=== PATIENT | male | born 1960 | race Caucasian/White ===

== ENCOUNTER → 2017-11-10 | Outpatient (CLI) | payer MEDICARE ==
--- NOTE | 2017-11-11 08:49 | MR ---
EXAMINATION TYPE: MR lumbar spine wo/w con DATE OF EXAM: 11/10/2017 COMPARISON: NONE HISTORY: Low back pain Contrast: 9.5 abnormal Gadavist TECHNIQUE: T1 and T2 axial and sagittal images of the lumbar spine are submitted. FINDINGS: There is no abnormal signal seen within the visualized spinal cord or paraspinal soft tissu es. There is loss of the normal lumbar lordosis which is stable from prior exam. At T12-L1 degenerative signal within the disc space compatible with degenerative disc disease is stab le. Findings suggest previous laminectomy. No canal stenosis or disc herniation. Neural foramina are patent. At L1-2 there is no disc herniation or canal stenosis. Correlate for previous laminectomy. Neural for ken patent. At L2-3 there is there is progression of degenerative disc disease with severe changes seen near comp lete loss of disc space. Discogenic marrow changes are seen and there is diffuse central broad-based disc protrusion with moderate effacement of thecal sac. There is moderate left foraminal encroachment and mild right foraminal encroachment. Moderate central stenosis. At L3-4 there is disc desiccation with broad-based central disc bulging greater centrally slightly pa racentrally to left with mild effacement of thecal sac. Neural foramina remain patent. At L4-5 there is severe degenerative disc disease. There is broad-based central disc bulging greater paracentrally to left with hypertrophy ligamentum flavum and facet joints contribute to mild to moder ate central stenosis and bilateral foraminal suspect impingement left nerve root. Encroachment. At L5-S1 there is severe degenerative disc disease. Broad-based central disc bulging results in mild effacement of thecal sac. Findings suggest previous left hemilaminectomy. Mild bilateral foraminal en croachment. IMPRESSION: 1. Multilevel degenerative disc disease with progression L2-L3. Diffuse disc protrusion results in mo derate central stenosis and bilateral foraminal encroachment. 2. Multilevel postsurgical changes. 3. Broad-based central disc bulging with hypertrophic changes L4-L5 results in mild to moderate centr al stenosis and bilateral foraminal encroachment. More focal left paracentral disc protrusion or smal l herniation is stable. Nerve root impingement this level suspected. Also reported on previous exam.
== END | disposition home or self-care (01) ==
LOC: RADMRIMAIN 13:34
PROVIDERS: ATTEND Psychiatry & Neurology Pain Medicine
DX: M48.061 Spinal stenosis, lumbar region without neurogenic claudication (principal); M51.26 Other intervertebral disc displacement, lumbar region; M51.36 Other intervertebral disc degeneration, lumbar region; Z98.890 Other specified postprocedural states
CPT/HCPCS: 82565; 84520; 72158; 36415; A9581

== ENCOUNTER → 2018-03-05 | Outpatient (CLI) | payer MEDICARE ==
--- NOTE | 2018-03-05 14:26 | CT ---
EXAMINATION TYPE: CT angio chest DATE OF EXAM: 03/05/2018 2:13 PM COMPARISON: None HISTORY: R/O PE, recent back sx x1 month ago CT DLP: 345 mGycm Automated exposure control for dose reduction was used. CONTRAST: CTA scan of the thorax is performed with IV Contrast, patient injected with 80 mL of Isovue 370, pulm onary embolism protocol. . FINDINGS: LUNGS: The lungs are grossly clear, there is no concerning parenchymal mass or nodule identified. T here is no pleural effusion or pneumothorax seen. The tracheobronchial tree is patent. Pleural-based thickening noted on the left. Mild hyperinflation correlate for asthma or COPD. There is a periphera l 2 mm nodule right upper lobe laterally and left lung apex laterally which are too small to characte rize. MEDIASTINUM: There is satisfactory enhancement of the pulmonary artery and its branches, there is no CT evidence for pulmonary embolism. There are no greater than 1 cm hilar or mediastinal lymph nodes. No pericardial effusion is seen. OTHER: Severe degenerative disc disease seen involving the lower lumbar spine with posterior spondyl osis and findings suggestive of previous laminectomy. There is concern for postoperative infection or discitis correlate with MRI with contrast IMPRESSION: 1. No diagnostic evidence of pulmonary embolism 2. Postsurgical change lower thoracic spine. If there is concern for infection or discitis correlate with MRI with contrast. 3. There are a couple 2 mm pulmonary nodules which are too small to characterize. Six-month follow-up CT scan of the chest could be obtained to confirm stability.
== END | disposition home or self-care (01) ==
LOC: RADCTMAIN 13:42
PROVIDERS: ATTEND Family Medicine
DX: R91.8 Other nonspecific abnormal finding of lung field (principal); Z98.890 Other specified postprocedural states
CPT/HCPCS: 71275; Q9967

== ENCOUNTER → 2019-09-22 | Outpatient (CLI) | payer MEDICARE ==
--- NOTE | 2019-09-23 08:35 | CT ---
EXAMINATION TYPE: CT foot RT wo con DATE OF EXAM: 09/22/2019 COMPARISON: None HISTORY: 59-year-old male right foot pain following fall TECHNIQUE: Contiguous axial scanning of the right foot without IV contrast. Coronal and sagittal luz nstructions performed. 3-D reconstructions generated on a dedicated independent workstation. CT DLP: 222.9 mGycm Automated exposure control for dose reduction was used. FINDINGS: There is a mildly comminuted fracture involving the first metatarsal base with intra-articular extens ion into the dorsal aspect of the first TMT joint. There is no displacement. No additional midfoot fr actures seen. No malalignment is identified. Mcfadden's toe. Subtalar joint is aligned. No delineation to the Achilles tendon. IMPRESSION: MILDLY COMMINUTED, NONDISPLACED FRACTURE INVOLVING THE FIRST METATARSAL BASE. INTRA-ARTICULAR EXTENSI ON INTO THE DORSAL ASPECT OF THE FIRST TMT JOINT. NO ADDITIONAL MIDFOOT FRACTURE OR MALALIGNMENT SEEN .
== END | disposition home or self-care (01) ==
LOC: RADCTMAIN 13:26
PROVIDERS: ATTEND Orthopaedic Surgery
DX: S92.314A Nondisplaced fracture of first metatarsal bone, right foot, initial encounter for closed fracture (principal); S93.324A Dislocation of tarsometatarsal joint of right foot, initial encounter

== ENCOUNTER → 2020-11-11 | Outpatient (CLI) | payer BC, MEDICARE ==
--- NOTE | 2020-11-12 12:39 | CT ---
EXAMINATION TYPE: CT thoracic spine wo con, CT lumbar spine wo con DATE OF EXAM: 11/11/2020 COMPARISON: HISTORY: back pain, new recent injury (accession [id number]), back pain, no recent injury (accession [id number]) CT DLP: 989.4 (accession [id number]), 933.8 (accession [id number]) mGycm Automated exposure control for dose reduction was used. Helical imaging obtained through the thoracic and lumbar spine. Correlation to lumbar MRI 11/10/2017, MRI 02/09/2011 FINDINGS: There is a thoracic spinal curvature. Multilevel spondylosis is present. Thoracic vertebral bodies sh ow preserved height and bone mineralization. Loss of disc height at intervertebral levels of the uppe r thoracic spine noted. No significant foraminal encroachment. L1-L2 shows laminectomy change. Lead Portfolio Manager ior bony fusion change at the posterior elements, bridging bone is present from T12 to L1. Posterior fusion changes present L4-5 with intervertebral spacing block. Loss of disc height signal present L5- S1, L2-3 with associated vacuum phenomenon, minimal retrolisthesis grade 1 L2 on L3. Relative kyphosi s is noted at T12-L1 noted on prior MRI. No evident spinal stenosis or significant disc herniation. L5-S1 shows circumferential extension endplate disc complex extending towards the foramina as does L4 -5. Left-sided laminectomy change present at L4-5. Posterior disc bulge L5-S1 causes mild anterior ma ss effect on the thecal sac, possibly contact with the proximal S1 nerve roots. L4-5 show some soft t issue posterior lateral to the thecal sac and likely related to patient's surgery, there may be some underlying granulation tissue. L3-4 shows circumferential posterior disc bulge causing mild anterior mass effect on the thecal sac. No significant foraminal encroachment. Retrolisthesis grade 1 L2-3, posterior extension endplate disc complex causes anterior mass effect on the thecal sac. No significant spinal stenosis evident. T12-L1 and L1-2 are widely patent, no significant stenosis. There is a mild spinal curvature. IMPRESSION: POSTOP CHANGES ARE AGAIN NOTED. THERE IS DEGENERATIVE DISC DISEASE, FORAMINAL ENCROACHMENT DESCRIB ED.
== END | disposition home or self-care (01) ==
LOC: RADCTMAIN 14:42
PROVIDERS: ATTEND Psychiatry & Neurology Neurology
DX: M51.27 Other intervertebral disc displacement, lumbosacral region (principal); M43.16 Spondylolisthesis, lumbar region; M99.73 Connective tissue and disc stenosis of intervertebral foramina of lumbar region
CPT/HCPCS: 72128; 72131

== ENCOUNTER → 2021-07-14 | Outpatient (CLI) | payer MEDICARE ==
--- NOTE | 2021-07-14 08:05 | US ---
EXAMINATION TYPE: US kidneys/renal and bladder DATE OF EXAM: 07/14/2021 COMPARISON: NONE CLINICAL HISTORY: 61-year-old male N17.9. ACUTE KIDNEY FAILURE. Abnormal labs TECHNIQUE: Multiple sonographic images of the kidneys and bladder are obtained. FINDINGS: EXAM MEASUREMENTS: Right Kidney: 9.2 x 5.2 x 5.1 cm Left Kidney: 11.0 x 5.6 x 5.9 cm Right Kidney: No hydronephrosis or masses seen, slightly smaller in size compared to contralateral ki dney Left Kidney: No hydronephrosis or masses seen Bladder: distended, anechoic Bilateral Jets not seen IMPRESSION: No hydronephrosis. Ureteral jets not seen during the course of the exam. This could reflect decreased kidney function.
== END | disposition home or self-care (01) ==
LOC: RADUSWWP 06:59
PROVIDERS: ATTEND Family Medicine
DX: N17.9 Acute kidney failure, unspecified (principal)
CPT/HCPCS: 76770

== ENCOUNTER 2021-08-21 13:04 | Emergency (ER) | payer MEDICARE ==
[2021-08-21] MEDS ORDERED: ONDANSETRON 4 MG/2 ML VIAL IVP STA (13:48)
[2021-08-21] MEDS ORDERED: SODIUM CHLORIDE 0.9% 1,000 ML IV STA (13:48)
[2021-08-21 14:05] LABS: Basophils % (A) 1 %; Eosinophils # (A) 0.3 k/uL (0-0.7); Eosinophils % (A) 3 %; HGB 16.1 gm/dL (13.0-17.5); Lymphocytes # (A) 0.8 k/uL (1.0-4.8); Lymphocytes % (A) 10 %; MCH 31.5 pg (25.0-35.0); MCHC 33.5 g/dL (31.0-37.0); MCV 94.2 fL (80.0-100.0); Monocytes # (A) 0.4 k/uL (0-1.0); Monocytes % (A) 5 %; Neutrophils # (A) 6.1 k/uL (1.3-7.7); Neutrophils % (A) 78 %; Platelet Count 316 k/uL (150-450); RDW 13.2 % (11.5-15.5); WBC 7.9 k/uL (3.8-10.6)
[2021-08-21 14:14] LABS: Albumin 4.6 g/dL (3.5-5.0); Calcium 9.5 mg/dL (8.4-10.2); Potassium 4.6 mmol/L (3.5-5.1); Total Bilirubin 0.8 mg/dL (0.2-1.3); Total Protein 7.5 g/dL (6.3-8.2)
--- NOTE | 2021-08-21 14:42 | ED ---
Abdominal Pain HPI - General Chief Complaint: Abdominal Pain Stated Complaint: Vomiting Time Seen by Provider: 08/21/21 13:15 Source: patient Mode of arrival: ambulatory Limitations: no limitations - History of Present Illness Initial Comments: 61-year-old male presents emergency Department with nausea, vomiting and right sided abdominal pain. He reports that his symptoms started 7 days ago after he had ALLERGY testing. He has had difficulty keeping down any food or water. He had pain on his right side was radiated around to his flank. States that his symptoms of pain were worse a few days ago and have gotten better. He denies hematemesis. No associated diarrhea, constipation, melenic stools or hematochezia. He has had some dark stools however is taking Pepto at home. No history of GI bleeding or peptic ulcer disease. Patient admits to chronic back pain as he has 9 surgeries. He has chronic kidney disease and therefore denies NSAID use. No sick contacts with similar symptoms. No fevers. No other alleviating, precipitating or modifying factor - Related Data Home Medications Medication Instructions Recorded Confirmed Calcium Carbonate [Calcium] 600 mg PO DAILY 08/21/21 08/21/21 Cholecalciferol [Vitamin D3 (25 25 mcg PO DAILY 08/21/21 08/21/21 Mcg = 1000 Iu)] Fenofibrate 160 mg PO DAILY 08/21/21 08/21/21 Fish Oil/Dha/Epa [Fish Oil 1,200 1 cap PO DAILY 08/21/21 08/21/21 mg Fish Oil] Gabapentin 300 mg PO QID 08/21/21 08/21/21 HYDROcodone/APAP 10-325MG [Energy 1 tab PO QID 08/21/21 08/21/21 10-325] Irbesartan 300 mg PO DAILY 08/21/21 08/21/21 Labetalol HCl 200 mg PO BID 08/21/21 08/21/21 Magnesium 500 mg PO DAILY 08/21/21 08/21/21 Rosuvastatin Calcium [Crestor] 20 mg PO DAILY 08/21/21 08/21/21 Sildenafil Citrate 50 mg PO DAILY PRN 08/21/21 08/21/21 Testosterone Cypionate 300 mg IM Q14D 08/21/21 08/21/21 [Depo-Testosterone] Vitamin B Complex 1 cap PO DAILY 08/21/21 08/21/21 hydrALAZINE HCL 50 mg PO TID 08/21/21 08/21/21 tiZANidine HCL 4 mg PO QID 08/21/21 08/21/21 Previous Rx's Medication Instructions Recorded Amoxicillin/Potassium Clav 1 tab PO Q12HR #20 tab 08/21/21 [Augmentin 875-125 Tablet] Ondansetron Odt [Zofran Odt] 4 mg PO Q8HR PRN #10 tab 08/21/21 Allergies Allergy/AdvReac Type Severity Reaction Status Date / Time No Known Allergies Allergy Verified 08/21/21 16:32 Review of Systems ROS Statement: Those systems with pertinent positive or pertinent negative responses have been documented in the HPI. ROS Other: All systems not noted in ROS Statement are negative. Past Medical History Past Medical History: Hypertension Additional Past Medical History / Comment(s): chronic back pain History of Any Multi-Drug Resistant Organisms: None Reported Past Surgical History: Back Surgery Additional Past Surgical History / Comment(s): 9 back surgeries Past Psychological History: No Psychological Hx Reported Smoking Status: Never smoker Past Alcohol Use History: Occasional Past Drug Use History: None Reported General Exam Limitations: no limitations General appearance: alert, in no apparent distress Head exam: Present: atraumatic, normocephalic, normal inspection Eye exam: Present: normal appearance, PERRL, EOMI. Absent: scleral icterus, conjunctival injection, periorbital swelling ENT exam: Present: normal exam, mucous membranes moist Neck exam: Present: normal inspection. Absent: tenderness, meningismus, lymphadenopathy Respiratory exam: Present: decreased breath sounds. Absent: respiratory distress, rales, rhonchi, stridor Cardiovascular Exam: Present: regular rate, normal rhythm, normal heart sounds. Absent: systolic murmur, diastolic murmur, rubs, gallop, clicks GI/Abdominal exam: Present: soft, tenderness (right upper/lower quadrants), normal bowel sounds. Absent: distended, guarding, rebound, rigid Extremities exam: Present: normal inspection, full ROM, normal capillary refill. Absent: tenderness, pedal edema, joint swelling, calf tenderness Back exam: Present: normal inspection Neurological exam: Present: alert, oriented X3, CN II-XII intact Psychiatric exam: Present: normal affect, normal mood Skin exam: Present: warm, dry, intact, normal color. Absent: rash Course Vital Signs 08/21/21 08/21/21 08/21/21 13:11 15:28 17:55 Temperature 97.8 F 98 F Pulse Rate 91 98 79 Respiratory 18 22 18 Rate Blood Pressure 165/95 160/90 172/75 O2 Sat by Pulse 100 97 99 Oximetry Medical Decision Making - Medical Decision Making Upon arrival patient was placed into room 5. A thorough history and physical exam is performed. IV access is established and laboratory studies are conducted. The patient is given 4 mg of Zofran, liter bolus of normal saline and 0.5 mg of Dilaudid. Laboratory studies are conducted and reviewed. Patient's creatinine is 2.1 with a GFR of 13 2. Patient reports that his GFR is 35. He is sent for CT of his abdomen and pelvis without IV contrast which demonstrates colitis versus diverticulitis of the cecum and ascending colon. Patient continues to have some nausea and therefore is given 10 gg of Reglan and 50 mg of Benadryl. He is able to tolerate water. The patient is given 1 g of Rocephin and 500 mg of Flagyl. Recommend treatment with antibiotics. Patient feels comfortable going home at this time. He'll be given a Zofran starter pack. Additional Zofran sent to the pharmacy. Instructed to take the antiemetics with the antibiotics and follow up with his primary care doctor in 2-4 days. Return for any new or worsening symptoms. Patient agreed that she will be discharged with stable condition - Lab Data Result diagrams: 08/21/21 13:51 08/21/21 13:51 Lab Results 08/21/21 08/21/21 08/21/21 Range/Units 13:51 13:51 13:51 WBC 7.9 (3.8-10.6) k/uL RBC 5.10 (4.30-5.90) m/uL Hgb 16.1 (13.0-17.5) gm/dL Hct 48.0 (39.0-53.0) % MCV 94.2 (80.0-100.0) fL MCH 31.5 (25.0-35.0) pg MCHC 33.5 (31.0-37.0) g/dL RDW 13.2 (11.5-15.5) % Plt Count 316 (150-450) k/uL MPV 7.0 Neutrophils % 78 % Lymphocytes % 10 % Monocytes % 5 % Eosinophils % 3 % Basophils % 1 % Neutrophils # 6.1 (1.3-7.7) k/uL Lymphocytes # 0.8 L (1.0-4.8) k/uL Monocytes # 0.4 (0-1.0) k/uL Eosinophils # 0.3 (0-0.7) k/uL Basophils # 0.0 (0-0.2) k/uL Sodium 138 (137-145) mmol/L Potassium 4.6 (3.5-5.1) mmol/L Chloride 101 (98-107) mmol/L Carbon Dioxide 25 (22-30) mmol/L Anion Gap 12 mmol/L BUN 34 H (9-20) mg/dL Creatinine 2.16 H (0.66-1.25) mg/dL Est GFR (CKD-EPI)AfAm 37 (>60 ml/min/1.73 sqM) Est GFR (CKD-EPI)NonAf 32 (>60 ml/min/1.73 sqM) Glucose 115 H (74-99) mg/dL Plasma Lactic Acid Darinel 0.9 (0.7-2.0) mmol/L Calcium 9.5 (8.4-10.2) mg/dL Total Bilirubin 0.8 (0.2-1.3) mg/dL AST 17 (17-59) U/L ALT 14 (4-49) U/L Alkaline Phosphatase 58 (38-126) U/L Total Protein 7.5 (6.3-8.2) g/dL Albumin 4.6 (3.5-5.0) g/dL Lipase 216 (23-300) U/L Influenza Type A (PCR) (Not Detectd) Influenza Type B (PCR) (Not Detectd) RSV (PCR) (Not Detectd) SARS-CoV-2 (PCR) (Not Detectd) 08/21/21 Range/Units 13:51 WBC (3.8-10.6) k/uL RBC (4.30-5.90) m/uL Hgb (13.0-17.5) gm/dL Hct (39.0-53.0) % MCV (80.0-100.0) fL MCH (25.0-35.0) pg MCHC (31.0-37.0) g/dL RDW (11.5-15.5) % Plt Count (150-450) k/uL MPV Neutrophils % % Lymphocytes % % Monocytes % % Eosinophils % % Basophils % % Neutrophils # (1.3-7.7) k/uL Lymphocytes # (1.0-4.8) k/uL Monocytes # (0-1.0) k/uL Eosinophils # (0-0.7) k/uL Basophils # (0-0.2) k/uL Sodium (137-145) mmol/L Potassium (3.5-5.1) mmol/L Chloride (98-107) mmol/L Carbon Dioxide (22-30) mmol/L Anion Gap mmol/L BUN (9-20) mg/dL Creatinine (0.66-1.25) mg/dL Est GFR (CKD-EPI)AfAm (>60 ml/min/1.73 sqM) Est GFR (CKD-EPI)NonAf (>60 ml/min/1.73 sqM) Glucose (74-99) mg/dL Plasma Lactic Acid Darinel (0.7-2.0) mmol/L Calcium (8.4-10.2) mg/dL Total Bilirubin (0.2-1.3) mg/dL AST (17-59) U/L ALT (4-49) U/L Alkaline Phosphatase (38-126) U/L Total Protein (6.3-8.2) g/dL Albumin (3.5-5.0) g/dL Lipase (23-300) U/L Influenza Type A (PCR) Not Detected (Not Detectd) Influenza Type B (PCR) Not Detected (Not Detectd) RSV (PCR) Not Detected (Not Detectd) SARS-CoV-2 (PCR) Not Detected (Not Detectd) - EKG Data EKG Comments: EKG demonstrates a sinus rhythm with a rate of 76. OR interval 192. QRS 96. QTC of 374. Peak T waves in V to through V4. No acute ST segment elevations Disposition Clinical Impression: Abdominal pain, Nausea and vomiting, Acute diverticulitis Disposition: HOME SELF-CARE Condition: Stable Instructions (If sedation given, give patient instructions): Diverticulitis (ED) Additional Instructions: Please take the antibiotics and antinausea medications as directed. Follow-up with your doctor in 2-4 days. Return for any new or worsening symptoms Prescriptions: Amoxicillin/Potassium Clav [Augmentin 875-125 Tablet] 1 tab PO Q12HR #20 tab Ondansetron Odt [Zofran Odt] 4 mg PO Q8HR PRN #10 tab PRN Reason: Nausea Is patient prescribed a controlled substance at d/c from ED?: No Referrals: Deisi Beck MD [Primary Care Provider] - 1-2 days Time of Disposition: 17:11
--- NOTE | 2021-08-21 15:05 | CT ---
EXAMINATION TYPE: CT abdomen pelvis wo con DATE OF EXAM: 08/21/2021 COMPARISON: None HISTORY: abdominal pain, vomiting CT DLP: 814.6 mGycm Automated exposure control for dose reduction was used. Images obtained from the diaphragm to the floor the pelvis without contrast. Lung bases are clear. There is no pleural effusion. Heart size is normal. There is no pericardial eff usion. Liver spleen stomach pancreas and gallbladder appear intact. Bilateral external dilated. There is no adrenal mass. Kidneys show normal size and contour. There is no hydronephrosis. Bladder d istends smoothly. Ureters are not dilated. There is no retroperitoneal adenopathy. There is no pelvic mass. No free fluid in the pelvis. There is no inguinal hernia. There are numerous sigmoid diverticula. Appendix is posterior and appears normal. There is some mild fat stranding around the ascending colon. There are diverticula of the ascending colon. There is mini mal wall thickening. There is no ascites or free air. No bowel obstruction. There is posterior fusion surgery at L4-5. The re is degenerative disc space narrowing in the mid and lower lumbar spine. The bony pelvis is intact. IMPRESSION: Inflammatory mild Changes involving the cecum and ascending colon could relate to diverticulitis or colitis. normal appendix.
[2021-08-21] MEDS ORDERED: diphenhydrAMINE 50 MG/ML 1 ML VIAL IVP STA (15:19)
[2021-08-21] MEDS ORDERED: HYDROmorphone 0.5 MG/0.5 ML SYRINGE IVP STA (15:19)
[2021-08-21] MEDS ORDERED: METOCLOPRAMIDE 5 MG/ML 2 ML VIAL IVP STA (15:19)
[2021-08-21] MEDS ORDERED: metroNIDAZOLE 500 MG TAB PO STA (16:10)
[2021-08-21] MEDS ORDERED: cefTRIAXone IN SWFI 1,000 MG/10 ML SYRINGE IVP STA (16:10)
[2021-08-21] MEDS ORDERED: ONDANSETRON 4 MG ODT STARTER PACK 2 TAB BTL PO STA (17:07)
[2021-08-21 17:56] VITALS: BP 172/75; PULSE 79; RESP 18; TEMP 98
== END 2021-08-21 17:55 | disposition home or self-care (01) ==
LOC: EC 13:04
DX: K57.32 Diverticulitis of large intestine without perforation or abscess without bleeding (principal); Z20.822 Contact with and (suspected) exposure to COVID-19; I10 Essential (primary) hypertension; Z79.899 Other long term (current) drug therapy
CPT/HCPCS: 36415; 93005; 80053; 83605; 83690; 85025; 87636; 74176; 99284; 96374; 96375 ×4; 96361; J1200; J2765; J2405; J0696; J1170

== ENCOUNTER → 2021-08-23 | Outpatient (CLI) | payer MEDICARE ==
--- NOTE | 2021-08-23 15:29 | US ---
EXAMINATION TYPE: US bladder DATE OF EXAM: 08/23/2021 COMPARISON: NONE CLINICAL HISTORY: N18.30 chronic kidney disease. EXAM MEASUREMENTS: Post Void Residual Volume: 32.3 mL There appears to be a diverticulum when patient empties, this is not seen when patients bladder is fu ll. Color Doppler performed to assess ureteral jets. Bilateral Jets seen: Normal Post Void Residual (less than 50ml): 32 mL IMPRESSION: 1. Urinary bladder diverticulum is not excluded. Consider additional workup.
--- NOTE | 2021-08-23 15:45 | US ---
EXAMINATION TYPE: US renal artery duplex complet DATE OF EXAM: 08/23/2021 COMPARISON: NONE CLINICAL HISTORY: N18.30 chronic kidney disease. MEASUREMENTS: RENAL SIZE: Rt Kidney: 10.7 x 5.7 x 6.5cm Lt Kidney: 11.6 x 5.3 x 5.2cm RESISTANCE INDEX Right: 0.64 Left: 0.66 RA/AO RATIO (< 3.5 ) Right: 2.7 Left: 1.2 RA VELOCITY ( < 180 cm/s) Right: 324cm/s Left: 147cm/s This exam was severely limited and technically difficult. Severe overlying bowel gas. Right kidney se en only through one intercostal window. There is elevated velocity in mid right renal artery with normal ratio. Proximal renal artery not vis ualized bilaterally. Superior pole of bilateral kidneys not seen. Aorta not well visualized due to overlying bowel gas. Th ere appears to be mild hydro in left kidney. IMPRESSION: 1. Elevated right renal velocity with ratio remaining within normal limits. Degree of stenosis is lik ginger present in this region. MRA could be performed if additional evaluation benefit.
== END | disposition home or self-care (01) ==
LOC: RADUSWWP 08:46
PROVIDERS: ATTEND Family Medicine
DX: N18.30 Chronic kidney disease, stage 3 unspecified (principal)
CPT/HCPCS: 76857; 93975

== ENCOUNTER → 2022-01-25 | Outpatient (CLI) | payer MEDICARE ==
--- NOTE | 2022-01-25 10:33 | US ---
EXAMINATION TYPE: US kidneys/renal and bladder DATE OF EXAM: 01/25/2022 COMPARISON: CLINICAL HISTORY: N17.9 ACUTE KIDNEY DIEASE. Abnormal labs. No pain. EXAM MEASUREMENTS: Right Kidney: 9.6 x 5.2 x 5.1 cm Left Kidney: 10.5 x 4.4 x 4.7 cm Right Kidney: No hydronephrosis or masses seen Left Kidney: No hydronephrosis or masses seen Bladder: distended, anechoic Bilateral Jets seen There is no evidence for hydronephrosis at this point in time. No nephrolithiasis is seen. No idris s are identified. The urinary bladder is anechoic. Bilateral ureteral jets are seen. IMPRESSION: No discrete abnormality appreciated.
== END | disposition home or self-care (01) ==
LOC: RADUSWWP 09:37
PROVIDERS: ATTEND Family Medicine
DX: N17.9 Acute kidney failure, unspecified (principal)
CPT/HCPCS: 76770

== ENCOUNTER 2022-04-28 09:37 | Day surgery (SDC) | payer MEDICARE ==
[2022-04-26 14:21] VITALS: BMI 28.3
[~2022-04-28 09:37] MED LIST: LACTATED RINGERS 1,000 ML IV SCH
[2022-04-28 10:09] VITALS: TEMP 98.2
[2022-04-28 10:19] LABS: Glucose,Whole Blood 96 mg/dL (70-110)
[2022-04-28] MEDS ORDERED: PROPOFOL 10 MG/ML 20 ML VIAL IV ONE (11:20)
--- NOTE | 2022-04-28 11:44 | P.PCN ---
Date of Procedure: 04/28/22 Procedure(s) Performed: BRIEF HISTORY: Patient is a 61-year-old pleasant white male scheduled for an elective colonoscopy as a part of evaluation of Hemoccult-positive stool. PROCEDURE PERFORMED: Colonoscopy with snare polypectomy. PREOPERATIVE DIAGNOSIS: Hemoccult positive stool. IV sedation per Anesthesia. PROCEDURE: After informed consent was obtained, the patient, was brought into the endoscopy unit. IV sedation was administered by Anesthesia under continuous monitoring. Digital rectal examination was normal. Initially the Olympus CF-160 flexible video colonoscope was then inserted in the rectum, gradually advanced into the ascending colon, without any difficulty. There was a benign-appearing stricture identified in the mid ascending colon and the scope could not be advanced to the stricture. At this time the scope was removed and a pediatric colonoscopy was in introduced into the rectum and gradually advanced into the right colon and the stricture was once again encountered. Despite multiple attempts I was not able to advance the scope through the stricture. Since appeared very benign with normal-appearing mucosa. The cecum could be seen beyond the stricture which appeared normal. In the hepatic flexure there were 2 polyps measuring 5 mm in size which were removed by snare polypectomy. Mucosa of the transverse colon, descending colon, sigmoid colon, and rectum appeared normal. In the mid rectum there was a 1.5 cm pedunculated polyp removed by snare polypectomy. Scattered sigmoid diverticula seen. Retroflexion was performed in the rectum and no lesions were seen. The patient tolerated the procedure well. IMPRESSION: Mid ascending colon a benign-appearing stricture 5 mm 2 hepatic flexure polyps status post polypectomy 1.5 cm pedunculated rectal polyp status post polypectomy Scattered sigmoid diverticulosis RECOMMENDATIONS: Findings of this examination were discussed with the patient as well as his family. He was advised to follow with the biopsy results. If the biopsy reveals adenoma he can have a repeat colonoscopy in 3 years..
[2022-04-28 12:38] VITALS: BP 166/80; PULSE 84; RESP 18
== END 2022-04-28 13:00 | disposition home or self-care (01) ==
LOC: ORWHC2ENDO 09:37
PROVIDERS: ATTEND Internal Medicine Gastroenterology
DX: D12.3 Benign neoplasm of transverse colon (principal); D12.8 Benign neoplasm of rectum; K57.30 Diverticulosis of large intestine without perforation or abscess without bleeding; I10 Essential (primary) hypertension; K56.699 Other intestinal obstruction unspecified as to partial versus complete obstruction; E78.5 Hyperlipidemia, unspecified; Z98.890 Other specified postprocedural states; Z79.899 Other long term (current) drug therapy
CPT/HCPCS: 88305; 45385; J2704

== ENCOUNTER → 2024-08-29 | Outpatient (CLI) | payer MEDICARE ==
--- NOTE | 2024-08-29 15:28 | MR ---
EXAMINATION TYPE: MR shoulder LT wo con DATE OF EXAM: 08/29/2024 1:49 PM COMPARISON: None. CLINICAL INDICATION: Male, 64 years old with history of chronic pain syndrome, Lt shoulder pain x 1 y ear TECHNIQUE: Multiplanar, multisequence imaging of the left shoulder shoulder is performed without cont rast. FINDINGS: There is a split tear which extends throughout the intracapsular portion of the long head biceps tend on into the upper bicipital groove. Longitudinal interstitial tear continues down the remainder of th e extracapsular portion. There is moderate to severe tenosynovial fluid with synovial thickening. There appears to be a thickened and mildly edematous middle glenohumeral ligament with underdeveloped anterior labrum suggesting [place] complex. Some intrasubstance change noted along the superior third fibers of the subscapularis tendon along wi th some bursal sided fraying. The majority of the tendon remains intact. Moderate to severe degenerative change of the acromioclavicular joint with marginal spurring, subarti cular bony irregularity and reactive edema. There is abutment onto the underlying myotendinous juncti on of the supraspinatus. The graft both supraspinatus and infraspinatus tendons remain intact. Trace fluid within the subacromial/subdeltoid bursa. No atrophy of the rotator cuff musculature. No discrete labral tear given on a radiographic technique and no paralabral cyst. Physiologic glenohumeral joint fluid. Glenohumeral joint appears intact. No Hill-Sachs deformity or os acromiale. No suspicious bone marrow replacement. IMPRESSION: 1. Large split tear of the long head biceps tendon involving the intracapsular portion extending into the upper bicipital groove. Longitudinal interstitial tear continues down the remainder of the bicep s tendon. Associated soft tissue edema and moderate to severe tenosynovitis. 2. Some minimal bursal sided tearing and intrasubstance change of the subscapularis tendon. No high-g rade partial or full-thickness rotator cuff tear. 3. Yousuf complex with mild edema involving the thick MGHL; possibly due to ligamentous sprain. 4. Moderate to severe AC joint OA. [facility], , 08/29/2024 3:26 PM
== END | disposition home or self-care (01) ==
LOC: RADMRIMAIN 12:39
PROVIDERS: ATTEND Student in an Organized Health Care Education/Training Program
DX: M75.22 Bicipital tendinitis, left shoulder (principal); M65.912 Unspecified synovitis and tenosynovitis, left shoulder; M19.012 Primary osteoarthritis, left shoulder; R60.0 Localized edema; M75.112 Incomplete rotator cuff tear or rupture of left shoulder, not specified as traumatic

== ENCOUNTER → 2024-11-03 | Outpatient (CLI) | payer MEDICARE ==
--- NOTE | 2024-11-03 20:40 | MR ---
EXAMINATION TYPE: MR cervical spine wo con DATE OF EXAM: 11/03/2024 6:56 PM COMPARISON: None. CLINICAL INDICATION: Male, 64 years old with history of M50.30 OTHER CERVICAL DISC DEGENERATION, UNSP CERV, Neck pain, left arm pain to fingers. TECHNIQUE: Multiplanar multiecho imaging on a 3.0 Rachel magnet is performed through the cervical spin e. IV Contrast: mL (None, if empty) FINDINGS: The craniovertebral junction is normal. Vertebral body alignment is normal. C7-T1: No focal disc herniation or significant disc bulge is evident. No spinal canal stenosis or n eural foraminal stenosis is present. C6-7: Broad-based disc bulge is present extending into the left paracentral region. Mild anterior the tyler sac compression is present. No cord contact is evident. No spinal canal stenosis is present. Neur al foramen are patent. C5-6: Minimal residual disc bulge is present with anterior thecal sac contact. No cord contact or spi nal canal stenosis is present. Bilateral foraminal narrowing is present. C4-5: There is loss of disc at this level. Minimal residual central disc protrusion is present. No co rd contact or spinal canal stenosis is present. There is bilateral foraminal stenosis. C3-4: Broad-based disc bulge with mild anterior thecal sac compression. No cord contact or spinal can al stenosis present. Bilateral foraminal narrowing is present. C2-3: No focal disc herniation or significant disc bulge is evident. No spinal canal stenosis or rosalba ral foraminal stenosis is present. IMPRESSION: 1. Degenerative disc changes with loss of disc height through the cervical spine. 2. Mild disc bulge is present. The largest appears to be at C6-7 in the left paracentral region with moderate anterior thecal sac compression. In the sagittal plane the C3-4 broad-based bulge appears to have moderate thecal sac compression without cord contact or spinal canal stenosis. 3. Multilevel uncovertebral joint hypertrophy and foraminal narrowing [facility], , 11/03/2024 8:37 PM
== END | disposition home or self-care (01) ==
LOC: RADMRIMAIN 18:13
PROVIDERS: ATTEND Orthopaedic Surgery
DX: M50.31 Other cervical disc degeneration, high cervical region (principal); M47.812 Spondylosis without myelopathy or radiculopathy, cervical region
CPT/HCPCS: 72141